=== PATIENT | male | born 1975 | race Caucasian/White ===

== ENCOUNTER 2018-03-03 01:14 | Outpatient (CLI) | payer OTHER | END 2018-03-03 01:15 | disposition EMS.NT | LOC: EMS 01:14 | PROVIDERS: ATTEND Surgery | DX: R10.9 Unspecified abdominal pain (principal) ==

== ENCOUNTER 2018-03-03 01:58 | Emergency (ER) | payer OTHER ==
[2018-03-03 02:21] LABS: BILIRUBIN,URINE NEGATIVE (NEGATIVE); GLUCOSE, URINE (UA) NEGATIVE (NEGATIVE); KETONES,URINE (UA) NEGATIVE (NEGATIVE); LEUKOCYTE ESTERASE, URINE NEGATIVE (NEGATIVE); NITRITE,URINE NEGATIVE (NEGATIVE); OCCULT BLOOD,URINE LARGE (NEGATIVE); PROTEIN,URINE NEGATIVE (NEGATIVE); UROBILINOGEN,URINE 0.2 (NORMAL) E.U./dL (NORMAL)
[2018-03-03 02:22] LABS: CLARITY,URINE CLEAR (CLEAR)
[2018-03-03 02:29] LABS: BACTERIA,URINE None Seen /HPF (None Seen); RBC,URINE TNTC /HPF (0-5); SQUAMOUS EPITHELIAL CELL,UR NONE SEEN (<= Few)
--- NOTE | 2018-03-03 02:35 | ED Physician Documentation ---
PD HPI MALE - Stated complaint Stated Complaint: MALE - Chief complaint Chief Complaint: Abd Pain - History obtained from History obtained from: Patient - History of Present Illness Timing - onset: How many days ago (3) Timing - duration: Days (3) Timing - details: Gradual onset, Still present, Waxing and waning Associated symptoms: Urinary frequency, Unable to urinate, Abdominal pain Similar symptoms before: Has not had sx before Recently seen: Not recently seen - Additional information Additional information: Previously well 42-year-old male has developed some urinary symptoms over the last 3 days. He has had some urinary urgency and postvoid urgency. He also today had an episode of post void left lower quadrant ulises pain. This was severe. He states that he has noticed his urine has been dark and foul- smelling. He thinks that he might be a bit dehydrated and that he has not been drinking as much fluid as usual today. Review of Systems Constitutional: denies: Fever, Chills, Myalgias, Fatigue Eyes: denies: Decreased vision Ears: denies: Ear pain Nose: denies: Rhinorrhea / runny nose, Congestion Throat: denies: Sore throat Cardiac: denies: Chest pain / pressure, Palpitations Respiratory: denies: Dyspnea, Cough GI: reports: Abdominal Pain. denies: Nausea, Vomiting, Constipation, Diarrhea : reports: Frequency, Hesitancy, Unable to Void Skin: denies: Rash Musculoskeletal: denies: Neck pain, Back pain, Extremity pain Neurologic: denies: Generalized weakness, Focal weakness PD PAST MEDICAL HISTORY - Past Surgical History Past Surgical History: Yes - Present Medications Home Medications: Ambulatory Orders Medication Instructions Recorded Confirmed No Known Home Medications 07/17/13 07/17/13 - Allergies Allergies/Adverse Reactions: Allergies Allergy/AdvReac Type Severity Reaction Status Date / Time No Known Drug Allergies Allergy Verified 03/03/18 02:12 - Social History Does the pt smoke?: No Smoking Status: Never smoker Does the pt drink ETOH?: No Does the pt have substance abuse?: No - Immunizations Immunizations are current?: Yes - POLST Patient has POLST: No PD ED PE NORMAL - Vitals Vital signs reviewed: Yes (hypertensive ) - General General: Alert and oriented X 3, No acute distress, Well developed/nourished - HEENT HEENT: Atraumatic, PERRL, EOMI - Neck Neck: Supple, no meningeal sign - Cardiac Cardiac: RRR, No murmur - Respiratory Respiratory: No respiratory distress, Clear bilaterally - Abdomen Abdomen: Soft, Non tender - Back Back: No CVA TTP, No spinal TTP - Derm Derm: Normal color, Warm and dry, No rash - Extremities Extremities: No deformity, No edema - Neuro Neuro: Alert and oriented X 3, negative cleaner 2-12 intact, No motor deficit, No sensory de ficit, Normal speech Eye Opening: Spontaneous Motor: Obeys Commands Verbal: Oriented GCS Score: 15 - Psych Psych: Normal mood, Normal affect Results - Vitals Vitals: Vital Signs - 24 hr 03/03/18 02:08 Temperature 36.3 C L Heart Rate 65 Respiratory 18 Rate Blood Pressure 130/89 H O2 Saturation 96 Oxygen O2 Source Room air - Labs Labs: Laboratory Tests 03/03/18 02:15 Urine Color YELLOW Urine Clarity CLEAR Urine pH 6.0 Ur Specific [place] 1.025 Urine Protein NEGATIVE Urine Glucose (UA) NEGATIVE Urine Ketones NEGATIVE Urine Occult Blood LARGE H Urine Nitrite NEGATIVE Urine Bilirubin NEGATIVE Urine Urobilinogen 0.2 (NORMAL) Ur Leukocyte Esterase NEGATIVE Urine RBC TNTC H Urine WBC 0-3 Ur Squamous Epith Cells NONE SEEN Urine Bacteria None Seen Ur Microscopic Review INDICATED Urine Culture Comments NOT INDICATED - Rads (name of study) CT abd/pel without Radiology: Prelim report reviewed (Impression: 3 mm calculus in the urinary bladder, likely representing a recently passed stone. 1 mm nonobstructing calculus in the upper pole of the left kidney.), EMP read indepedently, See rad report Procedures - Bedside sono Bedside sono by EMP: With his bedside ultrasound the left kidney is imaged it is sonographically nontender and there is no evidence of hydronephrosis. The bladder is imaged and it is not over distended. He is just voided and there is no specific image. - IVC sono (time) 0230 Bedside IVC sono: IVC measures (cm) (1.34), IVC collapsed c insp (cm) (complete), Dehydration (est < 1 liter deficit) PD MEDICAL DECISION MAKING - ED course Complexity details: reviewed results, re-evaluated patient, considered differential, d/w patient ED course: 42-year-old male with left lower quadrant abdominal pain severe and some urinary symptoms over the past several days has hematuria on microscopic evaluation of the urine and a CT scan of the abdomen pelvis is undertaken. This shows a stone in the bladder 3mm and a 1mm non-obstructing stone in the left kidney. The patient is counseled to drink extra fluids and expect resolution of any symptoms. Departure - Departure Disposition: 01 Home, Self Care Clinical Impression: Ureterolithiasis Condition: Stable Instructions: ED Stone Renal Passed Follow-Up: KATELYN Gore [Provider Group]
--- NOTE | 2018-03-03 03:06 | CT Report ---
Reason: left flank pain Procedure Date: 03/03/2018 Accession Number: [id number] / [id number] Procedure: CT - Abdomen/Pelvis W/O CPT Code: FULL RESULT: EXAM: CT ABDOMEN AND PELVIS (CT KUB) EXAM DATE: 03/03/2018 02:56 AM. CLINICAL HISTORY: Left flank pain. COMPARISONS: ABDOMEN/PELVIS W/ 07/18/2013 12:10 AM. TECHNIQUE: Routine axial helical CT imaging was performed through the abdomen and pelvis without IV contrast. Reconstructions: Coronal and sagittal. In accordance with CT protocol optimization, one or more of the following dose reduction techniques were utilized for this exam: automated exposure control, adjustment of mA and/or KV based on patient size, or use of iterative reconstructive technique. FINDINGS: Lung Bases: Unremarkable. Right Kidney/Ureter: No stones, hydronephrosis, or hydroureter. No perinephric fat stranding. Left Kidney/Ureter: 1 mm calculus in the upper pole of the left kidney, without hydronephrosis or hydroureter. Other Solid Organs: Noncontrast images of the solid organs are grossly unremarkable. Gallbladder/Bile Ducts: Unremarkable. Peritoneal Cavity: No free fluid, free air or wai adenopathy. Bowel is grossly unremarkable. Pelvic Organs: 3 mm calculus in the urinary bladder. No pelvic adenopathy or free fluid. Vasculature: Unremarkable. Other: None. IMPRESSION: 3 mm calculus in the urinary bladder, likely representing a recently passed stone. 1 mm nonobstructing calculus in the upper pole of the left kidney. [facility]
[2018-03-03 03:42] VITALS: BP 130/75
== END 2018-03-03 03:42 | disposition home or self-care (01) ==
LOC: ED 01:58
DX: N20.1 Calculus of ureter (principal); E86.0 Dehydration
CPT/HCPCS: 74176; 81001; 81003; 87086; 99283; 99284